=== PATIENT | female | born 1990 ===

== ENCOUNTER → 2021-11-29 | Outpatient (REF) | payer OTHER, MEDICAID | LOC: M LAB REF 15:10 | PROVIDERS: ATTEND Physician Assistant Medical | DX: R52 Pain, unspecified (principal) ==

== ENCOUNTER → 2022-09-21 | Outpatient (REF) | payer OTHER | LOC: M LAB REF 18:57 | PROVIDERS: ATTEND Nurse Practitioner Family | DX: R30.0 Dysuria (principal); N39.0 Urinary tract infection, site not specified ==